=== PATIENT | male | born 1950 | race Two or more races ===

== ENCOUNTER 2018-05-24 22:51 | Emergency (ER) | payer MEDICARE, MEDICAID ==
[2018-05-25 00:11] LABS: ADD MAN DIFF? NO
[2018-05-25 00:13] LABS: BASO # 0.1 x10^3/uL (0.0-0.2); BASO % 1 % (0-3); EOS # 0.1 x10^3/uL (0.0-0.7); EOS % 1 % (0-3); HEMATOCRIT 38.6 % (39.0-53.0); HEMOGLOBIN 13.6 g/dL (13.0-17.5); LYMPH % 38 % (24-48); MEAN CORPUSCULAR HEMOGLOBIN 32 pg (25-35); MEAN CORPUSCULAR HGB CONC 35 g/dL (31-37); MEAN CORPUSCULAR VOLUME 90 fL (79-100); MONO # 0.6 x10^3/uL (0.0-1.1); MONO % 8 % (0-9); NEUT # 4.1 x10^3uL (1.8-7.7); NEUT % 53 % (31-73); PLATELET COUNT 217 x10^3/uL (140-400); RED BLOOD COUNT 4.28 x10^6/uL (4.30-5.70); RED CELL DISTRIBUTION WIDTH 13.5 % (11.5-14.5); WHITE BLOOD COUNT 7.8 x10^3/uL (4.0-11.0)
[2018-05-25 00:22] LABS: ANION GAP 4 (6-14); BLOOD UREA NITROGEN 18 mg/dL (8-26); CALCIUM 8.9 mg/dL (8.5-10.1); CARBON DIOXIDE 31 mmol/L (21-32); CHLORIDE 103 mmol/L (98-107); CREATININE 1.2 mg/dL (0.7-1.3); GLUCOSE 123 mg/dL (70-99); SODIUM 138 mmol/L (136-145)
[2018-05-25 00:31] LABS: TROPONINI < 0.017 ng/mL (0.000-0.055)
[2018-05-25] MEDS: IV NORMAL SALINE 1000ML BAG 1,000 ML IV (00:34)
[2018-05-25] MEDS: PROCHLORPERAZINE 10 MG/2 ML VIAL. IV (00:35)
[2018-05-25] MEDS: diphenhydrAMINE 50 MG/ML VIAL IM (00:45)
[2018-05-25] MEDS: diphenhydrAMINE 50 MG/ML VIAL IVP (00:47)
== END 2018-05-25 01:51 | disposition home or self-care (01) ==
LOC: ER 05-25 01:51
DX: G89.29 Other chronic pain (principal); R42 Dizziness and giddiness; E78.00 Pure hypercholesterolemia, unspecified; I10 Essential (primary) hypertension
CPT/HCPCS: 36415; 70450; 80048; 84484; 85025; 93005; 96361; 96374; 96375; 99285-25; J0780; J1200; J2060; J7030